=== PATIENT | male | born 1955 ===

== ENCOUNTER 2024-05-07 19:39 | Inpatient (IN) | payer MEDICAID, OTHER, SELFPAY ==
[2024-05-07 20:10] VITALS: BP 165/89; PULSE 104; RESP 22; TEMP 36.4; O2SAT 95
[2024-05-07 21:42] VITALS: BMI 32.4
[2024-05-07 22:00] VITALS: BP 164/92
[2024-05-07] MEDS: Melatonin 3 MG TABLET 6 MG PO (22:57)
[2024-05-07] MEDS: LORazepam 1 MG TABLET PO (22:57)
--- NOTE | 2024-05-08 01:32 | PC.ADMIT ---
Edil Bailey was admitted to via transfer from [facility] on a 12B for unspecified psychosis. the patient is reported to be Mandarin speaking, however he did not appear to understand the Mandarin speaking floor renovator. He did however appear to understand the Iraqi/Mandarin floor renovator however he did not answer any questions and appeared confused by the questions. He could not participate in the admission assessment questions due to his current mental state. The skin check was unremarkable. The patient was incontinent of urine in the exam room he was assisted with a shower and changing his clothing. The patient was initially placed on Q15 minute safety checks which were changed to Q5 minute checks for disorganization, entering peers rooms and defecating in a trash basket in the hallway. all admission documentation completed via the crisis evaluation
[2024-05-08 09:15] VITALS: BP 163/87; PULSE 80; RESP 20; TEMP 36.7; O2SAT 93
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
[2024-05-08 09:41] LABS: MANUAL DIFF FLAG NO
[2024-05-08 09:43] LABS: Basophils Percent Auto 0.4 % (0-2); Eosinophils Absolute Auto 0.1 X10*3/uL (0.0-0.4); Eosinophils Percent Auto 0.6 % (0-4); Hematocrit 42.9 % (42.0-52.0); Hemoglobin 14.7 g/dl (14.0-18.0); Imm Gran Abs Auto 0.02 X10*3/uL (0.00-0.03); Imm Gran Pct Auto 0.3 % (0.0-0.4); Lymphocytes Absolute Auto 1.5 X10*3/uL (1.2-4.9); Lymphocytes Percent Auto 19.3 % (20-40); Mean Corpuscular HGB Conc 34.3 g/dl (31.0-36.0); Mean Corpuscular Hemoglobin 30.7 pg (27.0-33.0); Mean Corpuscular Volume 89.6 fL (80.0-98.0); Mean Platelet Volume 10.6 fL (9.4-12.4); Monocytes Absolute Auto 0.6 X10*3/uL (0.1-1.2); Monocytes Percent Auto 7.4 % (2-11); Neutrophils Absolute Auto 5.6 x10*3/uL (2.0-8.3); Platelet Count 216 X10*3/uL (160-400); Red Blood Count 4.79 X10*6/uL (4.60-5.80); Red Cell Distribution Width 13.2 % (11.0-16.0); White Blood Count 7.8 X10*3/uL (4.8-10.8)
[2024-05-08 10:07] LABS: Alanine Aminotransferase 79 U/L (0-40); Alkaline Phosphatase 84 U/L (39-117); Anion Gap 12 (12-20); Aspartate Amino Transferase 45 U/L (5-37); Bilirubin Total 0.7 mg/dL (0.0-1.0); Blood Urea Nitrogen 16 mg/dL (9-16); Calcium 9.7 mg/dL (8.4-10.2); Carbon Dioxide 29 mmol/L (22-29); Chloride 106 mmol/L (96-108); Cholesterol 164 mg/dL (<200); Creatinine Clr Calc Pharmacy 77.5; Estimated Average Glucose 126 mg/dL; Estimated Glomerular Filt Rate > 60; Glucose Random 128 mg/dL (60-115); HDL Cholesterol 52 mg/dL (>40); Hemoglobin A1C 153.2576 umol/L; LDL Cholesterol Calculated 87 mg/dL (<100); Potassium 3.9 mmol/L (3.3-5.1); Sodium 143 mmol/L (135-145); Total Hemoglobin (HGBA1C) 3599.8455 umol/L; Total Protein 6.8 g/dL (6.5-8.0); Triglycerides 128 mg/dL (<150)
[2024-05-08 10:14] VITALS: BP 163/87; PULSE 80
[2024-05-08] MEDS: LORazepam 1 MG TABLET PO ×2 (10:14→14:31)
[2024-05-08] MEDS: atenoloL 50 MG TABLET PO (10:14)
[2024-05-08] MEDS: amLODIPine Besylate 10 MG TABLET PO (10:14)
[2024-05-08 10:24] LABS: Free T4 (Free Thyroxine) 1.23 ng/dL (0.71-1.85); Thyroid Stimulating Hormone 1.64 uIU/mL (0.32-4.0)
[2024-05-08 10:36] LABS: Folate 11.2 ng/mL (> or = 4.0); Vitamin B12 248 pg/mL (200-900)
--- NOTE | 2024-05-08 16:46 | PM.EVENT ---
Event Note Date of Service: 05/08/24 Event Note: Attempted to see patient for new admission physical however patient only speaks Mandarin and translation equipment was not functioning. Attempted to ask patient basic questions however he only steroid at the floor and did not respond. Unable to complete any examination. Time Spent With Patient Time: Total time managing care of this patient today ____ minutes.
[2024-05-08 20:00] VITALS: BP 146/79; PULSE 78; RESP 16; TEMP 37.1; O2SAT 94
[2024-05-09 07:36] VITALS: BP 176/88; PULSE 75; RESP 24; TEMP 36.9; O2SAT 93
[2024-05-09 08:00] VITALS: BP 176/88; PULSE 75; RESP 18; TEMP 36.4; O2SAT 93
[2024-05-09] MEDS: LORazepam 1 MG TABLET PO ×3 (08:23→21:50)
[2024-05-09] MEDS: atenoloL 50 MG TABLET PO (08:23)
[2024-05-09] MEDS: amLODIPine Besylate 10 MG TABLET PO (08:24)
--- NOTE | 2024-05-09 14:03 | HO.PSYCHPN ---
Subjective Subjective Date of Service: 05/09/24 Reason For Visit: Unspecified Psychosis Interim History: calm, cooperative. some echolalia, some linear responses. reports he continues to have diarrhea. declines medication for diarrhea. difficulty understanding why pt declining HS meds. per staff, 12b up tomorrow. taking HTN meds. eating. declined stormy meds. slept only about 1.5 hours. Mental Status Exam Mental Status Exam Narrative: diminutive, adequately dressed and groomed. cooperative. PMR. speech sparse and halting, some stuttering. thoughts linear and logical in brief answers, difficult to understand. affect constricted, normo-intense, non-labile. mood so-so. no SI/HI/AVH expressed. Diagnostics Vital Signs (24Hr): Vital Signs - 24 hr 05/08/24 20:00 05/09/24 07:36 05/09/24 08:00 Temperature 98.7 F 98.4 F 97.5 F Pulse Rate 78 75 75 Respiratory Rate 16 24 H 18 Blood Pressure 146/79 H 176/88 H 176/88 H Pulse Oximetry 94 93 93 Oxygen Delivery Method Room Air Room Air Room Air BMI result Body Mass Index 32.4 Labs 05/08/24 09:25 05/08/24 09:25 Labs: Laboratory Results - last 48 hr 05/08/24 09:25 WBC 7.8 RBC 4.79 Hgb 14.7 Hct 42.9 MCV 89.6 MCH 30.7 MCHC 34.3 RDW 13.2 Plt Count 216 MPV 10.6 Immature Gran % (Auto) 0.3 Neut % (Auto) 72.0 Lymph % (Auto) 19.3 L Cab[place] % (Auto) 7.4 Eos % (Auto) 0.6 Baso % (Auto) 0.4 Lymph # (Auto) 1.5 [place] # (Auto) 0.6 Eos # (Auto) 0.1 Baso # (Auto) 0.0 Abs Immat Gran (auto) 0.02 Absolute Neuts (auto) 5.6 Absolute Nucleated RBC 0.000 Nucleated RBC % (auto) 0.0 Sodium 143 Potassium 3.9 Chloride 106 Carbon Dioxide 29 Anion Gap 12 BUN 16 Creatinine 0.88 Estim Creat Clear Calc 77.5 Estimated GFR > 60 Random Glucose 128 H Estimat Average Glucose 126 Hemoglobin A1c % 6.0 Calcium 9.7 Total Bilirubin 0.7 AST 45 H ALT 79 H Alkaline Phosphatase 84 Total Protein 6.8 Albumin 4.0 Triglycerides 128 Cholesterol 164 LDL Cholesterol, Calc 87 HDL Cholesterol 52 Vitamin B12 248 Folate 11.2 TSH 1.64 Free T4 1.23 Medications Medications Current Medications Acetaminophen (Acetaminophen 325 Mg Tablet) 650 mg PO Q6H PRN PRN Reason: Headache/Pain Mild Scale (1-3) Al Hydroxide/Mg Hydroxide (Magnesium Hydrox/Alum Hydrox 30 Ml Oral.Susp) 30 ml PO Q6H PRN PRN Reason: Heartburn/Nausea Amlodipine Besylate (Amlodipine Besylate 10 Mg Tablet) 10 mg PO DAILY [facility]; Protocol Last Admin: 05/09/24 08:24 Dose: 10 mg Atenolol (Atenolol 50 Mg Tablet) 50 mg PO DAILY [facility]; Protocol Last Admin: 05/09/24 08:23 Dose: 50 mg Lorazepam (Lorazepam 1 Mg Tablet) 1 mg PO TID [facility] Last Admin: 05/09/24 08:23 Dose: 1 mg Magnesium Hydroxide (Milk Of Magnesia 30 Ml Oral.Susp) 30 ml PO DAILY PRN PRN Reason: Constipation Melatonin (Melatonin 3 Mg Tablet) 6 mg PO BEDTIME [facility] Last Admin: 05/08/24 21:23 Dose: Not Given Nicotine Polacrilex (Nicotine Polacrilex 2 Mg Gum) 4 mg BUCCAL Q2H PRN PRN Reason: Nicotine Cravings Trazodone HCl (Trazodone Hcl 50 Mg Tablet) 50 mg PO BEDTIME MRX1 PRN PRN Reason: Insomnia Allergies Allergies Allergy/AdvReac Type Severity Reaction Status Date / Time Unable to Assess Allergy Verified 05/07/24 22:02 Assessment & Plan Assessment & Plan (1) Schizoaffective disorder, bipolar type: Status: Acute Code(s): F25.0 - Schizoaffective disorder, bipolar type Plan 05/08: possible recently with catatonia. continue ativan 1 TID. restart anti-psychotic medications, unclear what present regimen is meant to be. paliperidone 3 mg QHS. hold seroquel for now. T/C use of mood stabilizer, as sister's description of recent behavior is c/w felipe or developing felipe. hold antidepressant for now. T/C restart if also on a mood stabilizer, or use wellbutrin for antidepressant. 05/09: slept only 1.5 hours. slowed but responding. some echolalia. per collateral from sister, pt may return home once stabilized. change antipsychotics to morning to see if pt more likely to be compliant at that time. Reason for continued inpatient stay Substantial Risk for: inability to function Time Spent With Patient Time: Total time managing care of this patient today __35__ minutes.
[2024-05-09] MEDS: Paliperidone ER 3 MG TAB.ER.24 PO (14:44)
[2024-05-09 20:00] VITALS: RESP 16
[2024-05-09] MEDS: Melatonin 3 MG TABLET 6 MG PO (21:50)
[2024-05-10 08:00] VITALS: BP 175/85; PULSE 81; RESP 18; TEMP 36.8; O2SAT 95
[2024-05-10] MEDS: Paliperidone ER 3 MG TAB.ER.24 PO (09:30)
[2024-05-10] MEDS: amLODIPine Besylate 10 MG TABLET PO (09:30)
[2024-05-10] MEDS: LORazepam 1 MG TABLET PO ×3 (09:30→20:45)
[2024-05-10] MEDS: atenoloL 50 MG TABLET PO (09:31)
[2024-05-10 10:00] VITALS: BP 165/80; RESP 18
--- NOTE | 2024-05-10 16:23 | HO.PSYCHPN ---
Subjective Subjective Date of Service: 05/10/24 Reason For Visit: Unspecified Psychosis Interim History: less verbal than yesterday. some echolalia. denies diarrhea. denies physical complaint. reports his mood is low. no other complaints or questions. per staff, 12b up today, slept 4 hours. Mental Status Exam Mental Status Exam Narrative: diminutive, adequately dressed and groomed. cooperative. PMR. speech sparse and halting, some stuttering. thoughts linear and logical in brief answers, difficult to understand, some echolalia. affect constricted, normo-intense, non-labile. mood so-so. no SI/HI/AVH expressed. Diagnostics Vital Signs (24Hr): Vital Signs - 24 hr 05/09/24 20:00 05/10/24 08:00 05/10/24 10:00 Temperature 98.3 F Pulse Rate 81 Respiratory Rate 16 18 18 Blood Pressure 175/85 H 165/80 H Pulse Oximetry 95 Oxygen Delivery Method Room Air BMI result Body Mass Index 32.4 Labs 05/08/24 09:25 05/08/24 09:25 Medications Medications Current Medications Acetaminophen (Acetaminophen 325 Mg Tablet) 650 mg PO Q6H PRN PRN Reason: Headache/Pain Mild Scale (1-3) Al Hydroxide/Mg Hydroxide (Magnesium Hydrox/Alum Hydrox 30 Ml Oral.Susp) 30 ml PO Q6H PRN PRN Reason: Heartburn/Nausea Amlodipine Besylate (Amlodipine Besylate 10 Mg Tablet) 10 mg PO DAILY [facility]; Protocol Last Admin: 05/10/24 09:30 Dose: 10 mg Atenolol (Atenolol 50 Mg Tablet) 50 mg PO DAILY [facility]; Protocol Last Admin: 05/10/24 09:31 Dose: 50 mg Lorazepam (Lorazepam 1 Mg Tablet) 1 mg PO TID [facility] Last Admin: 05/10/24 14:22 Dose: 1 mg Magnesium Hydroxide (Milk Of Magnesia 30 Ml Oral.Susp) 30 ml PO DAILY PRN PRN Reason: Constipation Melatonin (Melatonin 3 Mg Tablet) 6 mg PO BEDTIME [facility] Last Admin: 05/09/24 21:50 Dose: 6 mg Nicotine Polacrilex (Nicotine Polacrilex 2 Mg Gum) 4 mg BUCCAL Q2H PRN PRN Reason: Nicotine Cravings Paliperidone (Paliperidone Er 3 Mg Tab.Er.24) 3 mg PO DAILY [facility] Last Admin: 05/10/24 09:30 Dose: 3 mg Trazodone HCl (Trazodone Hcl 50 Mg Tablet) 50 mg PO BEDTIME MRX1 PRN PRN Reason: Insomnia Allergies Allergies Allergy/AdvReac Type Severity Reaction Status Date / Time Unable to Assess Allergy Verified 05/07/24 22:02 Assessment & Plan Assessment & Plan (1) Schizoaffective disorder, bipolar type: Status: Acute Code(s): F25.0 - Schizoaffective disorder, bipolar type Plan 05/08: possible recently with catatonia. continue ativan 1 TID. restart anti-psychotic medications, unclear what present regimen is meant to be. paliperidone 3 mg QHS. hold seroquel for now. T/C use of mood stabilizer, as sister's description of recent behavior is c/w felipe or developing felipe. hold antidepressant for now. T/C restart if also on a mood stabilizer, or use wellbutrin for antidepressant. 05/09: slept only 1.5 hours. slowed but responding. some echolalia. per collateral from sister, pt may return home once stabilized. change antipsychotics to morning to see if pt more likely to be compliant at that time. 05/10: slept 4 hours. took paliperidone this morning, somewhat sleepy after. denies physical problems, including diarrhea. reprots his mood is low. filed for commitment due to grave disability. Reason for continued inpatient stay Substantial Risk for: inability to function Time Spent With Patient Time: Total time managing care of this patient today __45__ minutes.
[2024-05-10 20:00] VITALS: BP 127/74; PULSE 76; RESP 18; TEMP 37.1; O2SAT 96
[2024-05-10] MEDS: Melatonin 3 MG TABLET 6 MG PO (20:45)
[2024-05-11 07:10] VITALS: BP 156/75; PULSE 75; RESP 14; TEMP 36.5; O2SAT 95
[2024-05-11] MEDS: LORazepam 1 MG TABLET PO ×3 (08:34→20:02)
[2024-05-11 08:35] VITALS: BP 156/75; PULSE 75
[2024-05-11] MEDS: atenoloL 50 MG TABLET PO (08:35)
[2024-05-11] MEDS: amLODIPine Besylate 10 MG TABLET PO (08:35)
[2024-05-11] MEDS: Paliperidone ER 3 MG TAB.ER.24 PO (08:35)
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
[2024-05-11 20:00] VITALS: BP 157/77; PULSE 84; RESP 16; TEMP 36.8; O2SAT 94
[2024-05-11] MEDS: Melatonin 3 MG TABLET 6 MG PO (20:02)
[2024-05-12 08:40] VITALS: BP 140/87; PULSE 87; RESP 15; TEMP 37.1; O2SAT 95
[2024-05-12] MEDS: amLODIPine Besylate 10 MG TABLET PO (08:42)
[2024-05-12] MEDS: Paliperidone ER 3 MG TAB.ER.24 PO (08:42)
[2024-05-12] MEDS: atenoloL 50 MG TABLET PO (08:42)
[2024-05-12] MEDS: LORazepam 1 MG TABLET PO ×3 (08:42→22:31)
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
[2024-05-12 19:05] VITALS: BP 142/69; PULSE 76; RESP 16; TEMP 37.3; O2SAT 94
[2024-05-12] MEDS: Melatonin 3 MG TABLET 6 MG PO (22:31)
[2024-05-13 07:40] VITALS: BP 147/81; PULSE 87; RESP 16; TEMP 36.9; O2SAT 95
[2024-05-13 08:43] VITALS: BP 147/81; PULSE 87
[2024-05-13] MEDS: atenoloL 50 MG TABLET PO (08:43)
[2024-05-13] MEDS: amLODIPine Besylate 10 MG TABLET PO (08:43)
[2024-05-13] MEDS: LORazepam 1 MG TABLET PO ×3 (08:43→21:17)
[2024-05-13] MEDS: Paliperidone ER 3 MG TAB.ER.24 PO (08:43)
--- NOTE | 2024-05-13 14:22 | HO.PSYCHPN ---
Subjective Subjective Date of Service: 05/13/24 Reason For Visit: Unspecified Psychosis Interim History: reasonably rapid responses. denies pain, diarrhea, problems eating, problems toileting. eager for discharge weds. on 1:1 now after having grabbed female peer's crotch on monday. taking meds. incontinent of urine overnight and this morning. slept 5 hours overnight. sat NOC slept 4 hours. mon slept all NOC. Mental Status Exam Mental Status Exam Narrative: 1:[address] Hospital clothing. Fair self care. PMR. Speech sparse. Thoughts linear and brief answers. Affect constricted, normo-intense, non-labile. mood euthymic. No SI/HI/AVH expressed. Insight and judgment poor Diagnostics Vital Signs (24Hr): Vital Signs - 24 hr 05/12/24 19:05 05/13/24 07:40 05/13/24 08:43 Temperature 99.1 F 98.4 F Pulse Rate 76 87 87 Respiratory Rate 16 16 Blood Pressure 142/69 H 147/81 H 147/81 H Pulse Oximetry 94 95 Oxygen Delivery Method Room Air Room Air 05/13/24 08:43 Temperature Pulse Rate Respiratory Rate Blood Pressure 147/81 H Pulse Oximetry Oxygen Delivery Method BMI result Body Mass Index 32.4 Labs 05/08/24 09:25 05/08/24 09:25 Medications Medications Current Medications Acetaminophen (Acetaminophen 325 Mg Tablet) 650 mg PO Q6H PRN PRN Reason: Headache/Pain Mild Scale (1-3) Al Hydroxide/Mg Hydroxide (Magnesium Hydrox/Alum Hydrox 30 Ml Oral.Susp) 30 ml PO Q6H PRN PRN Reason: Heartburn/Nausea Amlodipine Besylate (Amlodipine Besylate 10 Mg Tablet) 10 mg PO DAILY [facility]; Protocol Last Admin: 05/13/24 08:43 Dose: 10 mg Atenolol (Atenolol 50 Mg Tablet) 50 mg PO DAILY [facility]; Protocol Last Admin: 05/13/24 08:43 Dose: 50 mg Lorazepam (Lorazepam 1 Mg Tablet) 1 mg PO TID [facility] Last Admin: 05/13/24 08:43 Dose: 1 mg Magnesium Hydroxide (Milk Of Magnesia 30 Ml Oral.Susp) 30 ml PO DAILY PRN PRN Reason: Constipation Melatonin (Melatonin 3 Mg Tablet) 6 mg PO BEDTIME [facility] Last Admin: 05/12/24 22:31 Dose: 6 mg Nicotine Polacrilex (Nicotine Polacrilex 2 Mg Gum) 4 mg BUCCAL Q2H PRN PRN Reason: Nicotine Cravings Paliperidone (Paliperidone Er 3 Mg Tab.Er.24) 3 mg PO DAILY [facility]OTT[facility] Last Admin: 05/13/24 08:43 Dose: 3 mg Trazodone HCl (Trazodone Hcl 50 Mg Tablet) 50 mg PO BEDTIME MRX1 PRN PRN Reason: Insomnia Allergies Allergies Allergy/AdvReac Type Severity Reaction Status Date / Time Unable to Assess Allergy Verified 05/07/24 22:02 Assessment & Plan Assessment & Plan (1) Schizoaffective disorder, bipolar type: Status: Acute Code(s): F25.0 - Schizoaffective disorder, bipolar type Plan 05/08: possible recently with catatonia. continue ativan 1 TID. restart anti-psychotic medications, unclear what present regimen is meant to be. paliperidone 3 mg QHS. hold seroquel for now. T/C use of mood stabilizer, as sister's description of recent behavior is c/w felpie or developing felipe. hold antidepressant for now. T/C restart if also on a mood stabilizer, or use wellbutrin for antidepressant. 05/09: slept only 1.5 hours. slowed but responding. some echolalia. per collateral from sister, pt may return home once stabilized. change antipsychotics to morning to see if pt more likely to be compliant at that time. 05/10: slept 4 hours. took paliperidone this morning, somewhat sleepy after. denies physical problems, including diarrhea. reprots his mood is low. filed for commitment due to grave disability. 05/11/2024: Continue to encourage medication adherence 05/12: 1:1 observation as unpredictable behavior. continue to encourage med adherence. 05/13: taking meds. less PMR than admission. able to feed and toilet himself. planning for discharge. Reason for continued inpatient stay Substantial Risk for: inability to function and rapid decompensation Time Spent With Patient Time: Total time managing care of this patient today __25__ minutes.
[2024-05-13 20:36] VITALS: RESP 18
[2024-05-13] MEDS: Melatonin 3 MG TABLET 6 MG PO (21:17)
[2024-05-13] MEDS: traZODone HCL 50 MG TABLET PO (23:12)
[2024-05-14 07:51] VITALS: BP 154/82; PULSE 86; RESP 16; TEMP 36.7; O2SAT 95
[2024-05-14 07:52] VITALS: BP 154/82; PULSE 86; RESP 16; TEMP 36.7; O2SAT 95
[2024-05-14] MEDS: atenoloL 50 MG TABLET PO (08:48)
[2024-05-14] MEDS: Paliperidone ER 3 MG TAB.ER.24 PO (08:48)
[2024-05-14] MEDS: amLODIPine Besylate 10 MG TABLET PO (08:48)
[2024-05-14] MEDS: LORazepam 1 MG TABLET PO ×2 (08:49→20:37)
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
[2024-05-14 20:00] VITALS: BP 117/78; PULSE 78; RESP 18; TEMP 36.9; O2SAT 94
[2024-05-14] MEDS: Melatonin 3 MG TABLET 6 MG PO (20:37)
[2024-05-15 07:23] VITALS: BP 197/88; PULSE 85; RESP 20; TEMP 36.6; O2SAT 95
[2024-05-15 08:49] VITALS: BP 197/88; PULSE 85
[2024-05-15] MEDS: LORazepam 1 MG TABLET PO (08:49)
[2024-05-15] MEDS: Paliperidone ER 3 MG TAB.ER.24 PO (08:49)
[2024-05-15] MEDS: atenoloL 50 MG TABLET PO (08:49)
[2024-05-15 08:50] VITALS: BP 197/88
[2024-05-15] MEDS: amLODIPine Besylate 10 MG TABLET PO (08:50)
== END 2024-05-15 11:30 | disposition home or self-care (01) | DRG 750 ==
PROVIDERS: Admitting Provider Psychiatry & Neurology Psychiatry; Visit Provider Psychiatry & Neurology Psychiatry
DX: F25.0 Schizoaffective disorder, bipolar type (principal); Z79.899 Other long term (current) drug therapy
CPT/HCPCS: 36415; 80053; 80061; 82607; 82746; 83036; 84439; 84443; 85025

== ENCOUNTER → 2024-05-07 19:39 | Outpatient (BNV) | payer SELFPAY | PROVIDERS: Admitting Provider Psychiatry & Neurology Psychiatry; Visit Provider Psychiatry & Neurology Psychiatry | DX: F25.0 Schizoaffective disorder, bipolar type (principal) | CPT/HCPCS: 99231; 99232; 99233; 99239 ==